=== PATIENT | female | born 1960 | race Caucasian/White ===

== ENCOUNTER 2020-03-05 13:21 | Outpatient (CLI) | payer OTHER, SELFPAY ==
--- NOTE | 2020-03-05 | ECHO_ITS ---
Patient Info Name: Argelia Roman Age: 59 years : 1960 Gender: Female Ht: 64 in Wt: 145 lbs BSA: 1.73 m2 HR: 68 bpm BP: 136 / 93 mmHg Heart Rhythm: Sinus Rhythm Technical Quality: Good Exam Date: 03/05/2020 2:07 PM Exam Location: [facility] Pulmonary Patient Status: Outpatient Admit Date: 03/05/2020 Staff Ordering Physician: Eugenio Graham MD Returner: Thom Genao, BONITA, RT Attending Provider: Eugeino Graham MD Referring Physician: Santos BRASHER; Exam Type: CA echo doppler color flow Study Info Indications Z85.3 - Personal history of malignant neoplasm of breast Complete two-dimensional, color flow and Doppler transthoracic echocardiogram is performed. Strain analysis performed. Summary 1. Complete two-dimensional, color flow and Doppler transthoracic echocardiogram is performed. 2. Strain analysis performed. 3. Left ventricular chamber dimension is normal. 4. Left ventricular systolic function is normal, estimated at 65-70%. 5. There is no increased left ventricular wall thickness. 6. Left ventricular septal wall motion is normal. 7. The left ventricular diastolic function is normal. 8. Global longitudinal strain is borderline at -17 %. 9. Left atrial chamber dimension is mildly enlarged. 10. There is mild to moderate mitral valve regurgitation. 11. There is mild tricuspid valve regurgitation. Left Ventricle Left ventricular chamber dimension is normal. Left ventricular systolic function is normal, estimated at 65-70%. There is no increased left ventricular wall thickness. Left ventricular septal wall motion is normal. The left ventricular diastolic function is normal. Global longitudinal strain is borderline at -17 %. Right Ventricle Right ventricular chamber dimension is normal. Right ventricular systolic function is normal. Left Atria Left atrial chamber dimension is mildly enlarged. Right Atria Right atrial chamber dimension is normal. Atrial Septum Intact interatrial septum visualized by color flow imaging. Aortic Valve The aortic valve is trileaflet. There is mild aortic valve sclerosis. There is no aortic valve stenosis. There is trace aortic valve regurgitation. Pulmonic Valve The pulmonic valve is normal. There is no pulmonic valve stenosis. There is trace pulmonic regurgitation. Mitral Valve The mitral valve has normal leaflets. There is no mitral valve stenosis. There is mild to moderate mitral valve regurgitation. Tricuspid Valve The tricuspid valve leaflets are normal. There is no significant tricuspid valve stenosis. There is mild tricuspid valve regurgitation. No pulmonary hypertension, estimated pulmonary arterial systolic pressure is 26 mmHg. Pericardium/Pleural The pericardium appears normal. There is no pericardial effusion. Inferior Vena Cava Normal inferior vena cava with >50% collapse upon inspiration consistent with normal right atrial pressure, 5 mmHg. Aorta The aortic root size at the sinus of Valsalva is normal. The prox ascending aorta size is normal. Left Ventricular Outflow Tract Name Value Normal LVOT 2D LVOT Diameter 1.9 cm LVOT Doppler
== END 2020-03-05 13:22 | disposition home or self-care (01) ==
PROVIDERS: PCP Family Medicine Sports Medicine; Visit Provider Internal Medicine Hematology & Oncology
DX: C50.911 Malignant neoplasm of unspecified site of right female breast (principal)
CPT/HCPCS: 93306

== ENCOUNTER 2023-10-22 15:03 | Outpatient (CLI) | payer OTHER, SELFPAY ==
[2023-10-22 15:27] LABS: Basophils Percent Auto 0.7 % (0.2-1.2); Eosinophils Absolute Auto 0.1 K/mm3 (0-0.3); Eosinophils Percent Auto 2.2 % (0-4.4); Hemoglobin 14.6 g/dL (12.0-15.0); Immature Granulocyte Absolute 0.02 K/mm3 (0.00-0.031); Immature Granulocyte Percent A 0.3 % (0-0.5); Lymphocytes Absolute Auto 1.77 K/mm3 (0.9-3.2); Lymphocytes Percent Auto 30.3 % (18.3-44.2); Mean Corpuscular HGB Conc 33.2 g/dl (32-36); Mean Corpuscular Hemoglobin 29.9 pg (26-34); Mean Platelet Volume 9.3 fl (7.4-10.4); Monocytes Absolute Auto 0.4 K/mm3 (0.1-0.6); Monocytes Percent Auto 7.5 % (2.6-8.5); Neutrophils Absolute Auto 3.4 K/mm3 (1.3-6.7); Platelet Count Result 298 k/mm3 (150-375); Red Blood Count 4.89 M/mm3 (4.2-5.4); White Blood Count 5.8 K/mm3 (4.5-10.0)
[2023-10-22 15:39] LABS: Alanine Aminotransferase 27 U/L (6-35); Albumin Level 4.2 g/dL (3.5-5.1); Alkaline Phosphatase 83 U/L (38-126); Anion Gap 7 mmol/L (4-12); Aspartate Amino Transferase 31 U/L (14-36); Bilirubin,Total 0.4 mg/dL (0.2-1.3); Blood Urea Nitrogen 10 mg/dL (7-17); CRP < 0.5 mg/dL (<1.0); Calcium 9.3 mg/dL (8.4-10.2); Carbon Dioxide 32 mmol/L (22-30); Chloride 102 mmol/L (98-107); Estimated Glomerular Filt Rate 56; Glucose 83 mg/dL (65-110); Potassium 4.4 mmol/L (3.4-5.0); Sodium 141 mmol/L (137-145)
[2023-10-25 14:15] LABS: Immunoglobulin A 237 mg/dL (70-320); TTG IGA AB <1.0 U/mL
== END 2023-10-22 15:04 | disposition home or self-care (01) ==
LOC: ANHLAB 15:04
PROVIDERS: PCP Family Medicine; Visit Provider Nurse Practitioner Family
DX: R10.13 Epigastric pain (principal); R19.7 Diarrhea, unspecified; R15.2 Fecal urgency; R10.9 Unspecified abdominal pain
CPT/HCPCS: 36415; 80048; 80076; 82784; 85025; 86140; 86364

== ENCOUNTER 2023-10-23 10:17 | Outpatient (CLI) | payer OTHER, SELFPAY ==
[2023-10-30 00:44] LABS: Calprotectin, Stool 11 mcg/g
[2023-11-02 00:39] LABS: Pancreatic Elastase, Stool 50 mcg/g
== END 2023-10-23 10:18 | disposition home or self-care (01) ==
PROVIDERS: PCP Family Medicine; Visit Provider Nurse Practitioner Family
DX: R19.7 Diarrhea, unspecified (principal); R15.2 Fecal urgency; R10.13 Epigastric pain; R10.9 Unspecified abdominal pain
CPT/HCPCS: 82653; 83993

== ENCOUNTER 2023-12-27 00:32 | Day surgery (SDC) | payer MEDICARE, SELFPAY ==
[2023-12-21 15:26] VITALS: BMI 28.5
[2023-12-27 10:06] VITALS: BP 122/81; PULSE 85; RESP 18; TEMP 36.3; O2SAT 99
[2023-12-27 10:14] VITALS: BMI 28.1
[2023-12-27] MEDS: LACTATED RINGERS 1,000 ML 150 ML IV CONT (10:22)
--- NOTE | 2023-12-27 10:32 | WPDANESEPPF ---
Anes - Initial Pre Proc Eval Procedure: Operation Date: 12/27/23 11:00 Proposed Procedures p Esophagogastroduodenoscopy & Colonoscopy - Spencer Hernandez MD Date/Time: 12/27/23 10:32 Surgeon: Spencer Hernandez MD Pre Op Diagnosis: fecal urgency, epigastric pain, nausea, diarrhea Patient Data Age: 63 Gender: F Height: 1.6 m Weight: 72.1 kg Last Vital Signs Temp 36.3 C L 12/27/23 10:06 Pulse 85 12/27/23 10:06 Resp 18 12/27/23 10:06 BP 122/81 12/27/23 10:06 Pulse Ox 99 12/27/23 10:06 O2 Del Method Room Air 12/27/23 10:06 Allergies Allergy/AdvReac Type Severity Reaction Status Date / Time No Known Allergies Allergy Unknown Verified 12/21/23 15:07 Home Medications Medication Instructions Recorded Confirmed Type cholecalciferol (vitamin D3) 25 25 mcg PO DAILY 07/01/20 12/21/23 History mcg (1,000 unit) tablet (Vitamin D3) levothyroxine 100 mcg tablet 100 mcg PO DAILY 07/01/20 12/21/23 History paroxetine HCl 20 mg tablet 20 mg PO QAM 07/01/20 12/21/23 History atorvastatin 10 mg tablet 10 mg PO DAILY 07/08/20 12/21/23 History dicyclomine 10 mg capsule 10 mg PO TID #90 caps 10/22/23 12/21/23 Rx omeprazole 40 mg capsule,delayed 40 mg PO DAILY #30 caps 10/22/23 12/27/23 Rx release lipase 60,000-protease 1 cap PO .ac #300 caps 11/02/23 12/21/23 Rx 189,600-amylase 252,600 unit capsule, delay rel (Zenpep) Patient hx anesthesia problems: none Family hx anesthesia problems: none Results Review: All pre-operative results and documents have been reviewed as part of the pre-operative evaluation. [facility] Past Medical History Medical History (Updated 12/27/23 @ 10:34 by Alvaro Hoffman MD) Breast CA Depression Hyperlipidemia Surgical History Surgical History (Updated 10/22/23 @ 14:26 by Comfort Sanchez MA) H/O lumpectomy H/O: hysterectomy Family History Family History Mother Breast cancer, Onset Age: 79 Social History Social History Smoking status: Never smoker Alcohol intake: never Substance use: current Substance use type: does not use Living arrangements: with family Spiritual care concerns: No Anes - Eval Final PreProcedure Day of Procedure 12/27/23 10:32 Patient weight: overweight Heart: regular rate and rhythm Lungs: clear to auscultation Airway: Mallampati scale class II Neurological: alert and oriented Last oral intake: >/= 8 hours ASA classification: II Emergent: no Anesthetic plan: proceed Anesthesia type and monitoring: general GIVS and standard monitoring Results Review: All pre-operative results and documents have been reviewed as part of the pre-operative evaluation. Informed Consent: The patient's anesthetic plan and its attendant risks and benefits were discussed with the patient/family/POA. Questions were solicited and answers provided to the satisfaction of the patient/family/POA.
--- NOTE | 2023-12-27 10:48 | PM.IMHP ---
H&P: HPI History of Present Illness Date/Time: 12/27/23 10:48 Chief Complaint: epigastric pain - colonoscopy screening Narrative: Over the past 2-3 weeks she has been having epigastric pain that she states is sharp in nature and sometimes feels like it takes her breath away . She has taken OTC Tums before and states that it did help with the epigastric pain. She complains of daily episodes of nausea without vomiting. In addition, she has never had a colonoscopy and is here for her 1st screening colonoscopy. Review of Systems Review of Systems: All systems reviewed & are unremarkable except as noted in HPI and below PMFSH Past Medical History Medical History Breast CA Depression Hyperlipidemia Surgical History Surgical History (Updated 10/22/23 @ 14:26 by Comfort Sanchez MA) H/O lumpectomy H/O: hysterectomy Family History Family History Mother Breast cancer, Onset Age: 79 Social History Social History Smoking status: Never smoker Alcohol intake: never Substance use: current Substance use type: does not use Living arrangements: with family Spiritual care concerns: No Meds Home Medications and Allergies Home Medications Medication Instructions Recorded Confirmed Type cholecalciferol (vitamin D3) 25 25 mcg PO DAILY 07/01/20 12/21/23 History mcg (1,000 unit) tablet (Vitamin D3) levothyroxine 100 mcg tablet 100 mcg PO DAILY 07/01/20 12/21/23 History paroxetine HCl 20 mg tablet 20 mg PO QAM 07/01/20 12/21/23 History atorvastatin 10 mg tablet 10 mg PO DAILY 07/08/20 12/21/23 History dicyclomine 10 mg capsule 10 mg PO TID #90 caps 10/22/23 12/21/23 Rx omeprazole 40 mg capsule,delayed 40 mg PO DAILY #30 caps 10/22/23 12/27/23 Rx release lipase 60,000-protease 1 cap PO .ac #300 caps 11/02/23 12/21/23 Rx 189,600-amylase 252,600 unit capsule, delay rel (Zenpep) Allergies Allergy/AdvReac Type Severity Reaction Status Date / Time No Known Allergies Allergy Unknown Verified 12/21/23 15:07 Vital Signs Vital Signs - 24 hr 12/27/23 10:06 Temperature 97.4 F L Pulse Rate 85 Respiratory Rate 18 Blood Pressure 122/81 Pulse Oximetry 99 Oxygen Delivery Room Air Assessment and Plan Assessment and plan (1) Epigastric pain: Code(s): R10.13 - Epigastric pain Status: Acute Assessment and Plan: The patient is deemed a good candidate for both procedures. Consent signed. Will proceed. (2) Screening for malignant neoplasm of colon: Code(s): Z12.11 - Encounter for screening for malignant neoplasm of colon Status: Acute
--- NOTE | 2023-12-27 11:10 | SUR.OPER ---
EGD [id number]. Colonoscopy start time 1114.
[2023-12-27 11:36] VITALS: BP 136/81; PULSE 77; RESP 21; O2SAT 100
[2023-12-27 11:46] VITALS: BP 136/63; PULSE 84; RESP 25; O2SAT 100
[2023-12-27 11:56] VITALS: BP 159/96; PULSE 70; RESP 20; O2SAT 100
== END 2023-12-27 12:08 | disposition home or self-care (01) ==
PROVIDERS: PCP Family Medicine; Referring Provider Nurse Practitioner Family; Visit Provider Internal Medicine Gastroenterology
PROC: 0DJ08ZZ Inspection of Upper Intestinal Tract, Via Natural or Artificial Opening Endoscopic (ICD-10-PCS; CPT 43235; principal; 2023-12-27 11:00)
DX: Z12.11 Encounter for screening for malignant neoplasm of colon (principal); D12.3 Benign neoplasm of transverse colon; D12.8 Benign neoplasm of rectum; K21.00 Gastro-esophageal reflux disease with esophagitis, without bleeding; K29.50 Unspecified chronic gastritis without bleeding; K29.80 Duodenitis without bleeding; E78.5 Hyperlipidemia, unspecified; F32.A Depression, unspecified; Z98.890 Other specified postprocedural states; Z85.3 Personal history of malignant neoplasm of breast
CPT/HCPCS: 43239; 45385; 88305; J2003; J2704; J7120

== ENCOUNTER 2024-07-26 09:23 | Outpatient (CLI) | payer MEDICARE, SELFPAY ==
--- NOTE | ~2024-07-26 | DEXA_ITS ---
Bone Density Report Name: LUCIA MYLES Age: 63 Sex: Female Ethnicity: White Date of : 1960 Indication: postmenopausal; screening for osteoporosis; cancer; hysterectomy; Referring Provider: SHERYL, LORA Duncan Study: Bone densitometry was performed. Exam Date: July 26, 2024 Accession number: [id number] Bone Density: Region BMD T-score Z-score Classification AP Spine(L1, L2, L3) 0.955 -0.6 1.2 Normal Femoral Neck (Left) 0.619 -2.1 -0.5 Osteopenia Total Hip (Left) 0.806 -1.1 0.1 Osteopenia Femoral Neck (Right) 0.609 -2.2 -0.6 Osteopenia Total Hip (Right) 0.792 -1.2 0.0 Osteopenia Total Hip Mean 0.799 -1.2 0.1 Osteopenia World Health Organization criteria for BMD impression classify patients as: Normal (T-score at or above -1.0), Osteopenia (T-score between -1.0 and -2.5), or Osteoporosis (T-score at or below -2.5). 10-year Fracture Risk(1): Major Osteoporotic Fracture 11% Hip Fracture 1.9% Reported Risk Factors: [place] (), Neck BMD=0.609, BMI=27.5 (1) FRAX(R) Version 3.08. Fracture probability calculated for an untreated patient. Fracture probability may be lower if the patient has received treatment. Previous Exams: Region Exam Age BMD T-score BMD Change BMD Change Date g/cm2 vs Baseline vs Previous AP Spine (L1-L3) 07/26/2024 63 0.955 -0.6 -0.081 (-7.8%) -0.081 (-7.8%) 08/11/2018 57 1.036 0.2 Total Hip(Left) 07/26/2024 63 0.806 -1.1 -0.099 (-10.9% -0.099 (-10.9% 08/11/2018 57 0.905 -0.3 *Denotes significance at 95% confidence level, LSC for AP Spine = 0.022 g/cm2, LSC for Total Hip = 0.027 g/cm2 # Denotes dissimilar scan types or analysis methods Clinical Information Provided by Patient: Has used the following medications: Vitamin D, Calcium Has the following medical conditions: Cancer, Hysterectomy Patient maximum height was 64 Menopause Age: 33 Drinks caffeinated beverages Onset of menses at age 13 Number of children 1 Impression: The patient has low bone mass, based on the Right Femoral Neck T-score. The patient has an estimated ten-year risk of hip fracture of 1.9% and an estimated ten-year risk of major fracture of 11%, based on the WHO FRAX algorithm. No significant bone loss was observed. Discussion: BONE DENSITY IS LOW AT ONE OR MORE SKELETAL SITES. This patient's lowest T-score is low at one or more skeletal sites. It meets the World Health Organization's (WHO) criteria for ?low bone mass? (T-score between -1.0 and -2.5). The patient's 10-year risk of fracture as calculated by FRAX is less than the threshold where pharmacological therapy is recommended by the National Osteoporosis Foundation (NOF). However, all treatment decisions require clinical judgment and consideration of individual patient factors, including patient preferences, comorbidities, previous drug use, risk factors not captured in the FRAX model (e.g., frailty, falls, vitamin D deficiency, increased bone turnover, interval significant decline in bone density) and possible under or overestimation of fracture risk by FRAX. The patient should follow a healthful lifestyle (good nutrition with adequate calcium and vitamin D, and appropriate weight-bearing exercise). Follow-Up: Consider repeating this study in 2 to 3 years to reassess this patient's status, or sooner if there is some new clinical indication. Reported by: ROSE MARY on 07/26/2024 10:01:00 AM. Reviewed, dictated and finalized at location [facility]
--- OUTSIDE RECORDS SUMMARY | 2024-07-26 10:03 | XMS_ITS | Clinical Summary ---
Author Organization [facility] Address [address] [place] [address] Care Team Providers Care Community Services Manager Name Role Phone Unavailable Primary Care Provider Unavailabl e Source Comments [facility],non-owned Affiliates and Associated Physician Practices is amultiple site organization consisting of ambulatory clinics and hospital sitesin [place], [place], [place] and [place]. This disclosure is being madepursuant to the Care Everywhere program and may not contain all information available regarding this patient. Last updated 17.[facility] Social History Tobacco Use Types Packs/Day Years Used Date Smoking Tobacco: Never Assessed Comments Unknown Sex and Gender Information Value Date Recorded Sex Assigned at Not on file Legal Sex Female 11:05 AM CDT Gender Identity Not on file Sexual Orientation Not on file Plan of Treatment Health Maintenance Due Date Last Done Comments BONE DENSITY TESTING 1960 COLOGUARD (AGES 45-75) - COL ON CA SCREENING 1960 COLON MONITORING 1960 COLONOSCOPY - COLON CA SCREENING 1960 CT COLONOGRAPHY - COLON CA SCREENING 1960 Colorectal Cancer Screening 1960 FIT - COLON CA SCREENING 1960 FLEX SIG - COLON CA SCREENING 1960 LIPID TESTING 1960 MAMMOGRAM 1960 PAP SMEAR 1960 HIV SCREENING 1973 HEPATITIS C SCREENING 11/14/1976 DTAP/TDAP/TD VACCINES (1 - Tdap) 1977 PNEUMOCOCCAL VACCINE 50+ (1 of 1 - PCV) 2008 ZOSTER VACCINE (1 of 2) 2008 COVID-19 VACCINE (1 - 2023-2 5 season) 2023 DEPRESSION SCREENING 03/08/2024 MEDICARE AWV CALENDAR YEAR 2024 INFLUENZA VACCINE (Season Ended) 2024 Respiratory Syncytial Virus (RSV) Vaccine Pt: or over 60 yrs (1 - 1-dose 75+ series) 2033 HEPATITIS B VACCINE Aged Out No longe r eligible based on patient's age to complete this topic HIB VACCINE Aged Out No longer eligi ble based on patient's age to complete this topic HPV VACCINE Aged Out No longer eligi ble based on patient's age to complete this topic MENINGOCOCCAL (Group B) VACC INE SHARED DECISION-MAKING Aged Out No longer eligibl e based on patient's age to complete this topic MENINGOCOCCAL GROUPS A/C/Y/W VACCINE Aged Out No longer eligible b ased on patient's age to complete this topic [address] [place] [id number] [email or web address] MEDICARE ADV SELF PAY NO INSURANCE Member Subscriber Plan / Payer (Ef fective for All Dates) Name:Lucia Myles Member ID:Not on file Relation to Subscriber:Not on file Name:LUCIA MYLES Subscriber ID:Not on file (Home) Address: [address] [place] [address] [address] [phone] Payer ID:Not on file Group ID:Not on file Type:Self Pay Address: [place], [place]
--- OUTSIDE RECORDS SUMMARY | 2024-07-26 10:03 | XMS_ITS | Encounter Summary ---
Author Organization [facility] Address [address] [place] [address] Care Team Providers Care Food And Beverage Attendant Name Role Phone Unavailable Primary Care Provider Unavailabl e Encounter Details Date Type Department Care Team (Late st Contact Info) Description 07/21/2022 Lab Requisition [facility] - DermPath Lab [address] [place] [address] Nikky Malone DO [address] [facility] [facility] [address] [place] [address] Social History Tobacco Use Types Packs/Day Years Used Date Smoking Tobacco: Never Assessed Comments Unknown Sex and Gender Information Value Date Recorded Sex Assigned at Not on file Legal Sex Female 11:05 AM CDT Gender Identity Not on file Sexual Orientation Not on file documented as of this encounter Plan of Treatment Not on file documented as of this encounter Procedures Procedure Name Priority Date/Time Associated Diagnosis Comments DERMATOPATHOLOGY Routine 07/21/2022 10:5 2 AM CDT documented in this encounter Results * DERMATOPATHOLOGY (07/21/2022 10:52 AM CDT) Case Report Dermatopathology Report Case: [id number] Authorizing Provider: Nikky Malone DO Collected: 07/21/2022 10:52 AM Ordering Location: [facility] DermPath Lab Received: 07/21/2022 04:45 PM Pathologist: Neela Vieyra MD Specimen: Skin, right mid back 12:55 PM CDT DERMATOPATHOLOGY LABORATORY Final Diagnosis Specimen A. SKIN, right mid back: LICHEN PLANUS-LIKE KERATOSIS (BENIGN LICHENOID KERATOSIS) (L82.1) 12:55 PM CDT DERMATOPATHOLOGY LABORATORY at 1255 CDT Clinical History R/O BCC 3 12:55 PM CDT DERMATOPATHOLOGY LABORATORY Gross Description Specimen A: Received is one formalin filled container labeled with the patient's name and designated right mid back. The specimen consists of a shave biopsy measuring 5x3x1 mm. Jar 0. 3 12:55 PM CDT DERMATOPATHOLOGY LABORATORY Microscopic Description Specimen A. SKIN, right mid back: The epidermis is mildly acanthotic. There is a lichenoid infiltrate with vacuolar changes of basilar keratinocytes and scattered necrotic keratinocytes. 3 12:55 PM CDT DERMATOPATHOLOGY LABORATORY Disclaimer An external and internal positive and negative controls are appropriate for the histochemical, immunohistochemical and immunofluorescence stain(s) in this case (if any), except where stated explicitly. The performance characteristics of the stain(s) cited in this report were developed and its performance characteristic determined by the Dermatopathology Laboratory at [facility], directed by Dr. Karen Huang. These tests need not be, and therefore are not, approved by the [place] Food and Drug Administration. The tests are used for clinical purposes. Billing Codes Specimen Charges Stain Charges 33215 1 3 12:55 PM CDT DERMATOPATHOLOGY LABORATORY Embedded Images 3 12:55 PM CDT DERMATOPATHOLOGY LABORATORY Pathology/Cytolo gy TISSUE SPECIMEN FROM SKIN / Unknown 07/21/2022 10:52 AM CDT 07/21/2022 4:45 PM CDT us Nikky Malone DO LAB - PATHOLOGY/CYTOLOGY ORDERABLES Final Result DERMATOPATHOLOGY LABORATORY [facility] - Department of Dermatology [address], [address] [phone] documented in this encounter Visit Diagnoses Not on filedocumented in this encounter
--- OUTSIDE RECORDS SUMMARY | 2024-07-26 10:03 | XMS_ITS | Encounter Summary ---
Author Organization [facility] Address [address] [place] [address] Care Team Providers Care Ethics Manager Name Role Phone Amanuel Coughlin MD Primary Care Provider [phone] Encounter Details Date Type Department Care Team (Late st Contact Info) Description 04/03/2020 Chart Note [facility] Rad[facility] Therapy [address] [place] [address] [place] [address] [place] [address] Social History Tobacco Use Types Packs/Day Years Used Date Smoking Tobacco: Never Smokeless Tobacco: Never Alcohol Use Standard Drinks/Week Comments Yes 0 (1 standard drink = 0.6 oz pur e alcohol) rare Comments No Sex and Gender Information Value Date Recorded Sex Assigned at Not on file Legal Sex Female 4:48 AM UNIFORM ROOM ATTENDANT Gender Identity Not on file Sexual Orientation Not on file Occupation Industry Job Start Date Job End Date Not on file Not on file Not on file Not on file COVID-19 Exposure Response Date Recorded In the last month, have you been in contact with someone who was confirmed or suspected to have Coronavirus / COVID-19? No / Unsure 03/06/2020 9:42 AM UNIFORM ROOM ATTENDANT documented as of this encounter Plan of Treatment Upcoming Encounters Date Type Department Care Team (Late st Contact Info) Description 12/19/2024 12:00 PM CDT Appointment [facility] Jeff Nolan [address] [place] [address] [place] [address] [address] [place] [phone] 12/19/2024 1:05 PM CDT Office Visit [facility] Breast Surgery Jeff Nolan [address] [facility] [address] [place] [address] [place] [address] [address] [facility] [address] [place] [address] documented as of this encounter Visit Diagnoses Not on filedocumented in this encounter Care Teams Ethics Manager Relationship Specialty Start Date End Date Amanuel Coughlin MD [address] [place] [address] PCP - General Family Practice 02/08/20 documented as of this encounter
--- OUTSIDE RECORDS SUMMARY | 2024-07-26 10:03 | XMS_ITS | CONTINUITY OF CARE DOCUMENT ---
Author Name carlos gonzalez Address Unknown Organization [facility] Address [address] [place] [address] [address] [place] [address] Phone [phone] Care Team Providers Care Peanut Vendor Name Role Phone Hola Morin MD Unavailable INSURANCE PROVIDERS Payer name Policy type / Coverage type Ning red libertarian ID [employer] OPEN ACCESS Other [id number]
--- OUTSIDE RECORDS SUMMARY | 2024-07-26 10:03 | XMS_ITS | Encounter Summary ---
Author Organization [facility] Address [address] [place] [address] Phone Care Team Providers Care Audio Visual Technician Name Role Phone Amanuel Coughlin MD Primary Care Provider [phone] Jorge Landon MD PhD Unavailable Vikki Huffman FLAT GRINDER OPERATOR Unavailable Mannie Roldan MD, Emory Unavailable [phone] Dorothy Bran FLAT GRINDER OPERATOR Unavailable [phone] Prateek Mancini MD Primary Care Provider [phone] Encounter Details Date Type Department Care Team (Late st Contact Info) Description 01/27/2021 Orders Only [facility] [address] [address] [place] [address] Jorge Landon MD PhD [address] [place], [place] [id number] Social History Tobacco Use Types Packs/Day Years Used Date Smoking Tobacco: Never Smokeless Tobacco: Never Alcohol Use Standard Drinks/Week Comments Yes 0 (1 standard drink = 0.6 oz pur e alcohol) Comments Unknown Sex and Gender Information Value Date Recorded Sex Assigned at Not on file Legal Sex Female 1:38 AM INFECTION PREVENTIONIST Gender Identity Female 02/28/2020 10:06 AM INFECTION PREVENTIONIST Sexual Orientation Straight 02/28/2020 10 :06 AM INFECTION PREVENTIONIST documented as of this encounter Plan of Treatment Not on file documented as of this encounter Visit Diagnoses Not on filedocumented in this encounter Additional Health Concerns Infection Onset Date Last Indicated Resolved Time COVID: Suspected 07/21/2024 07/21/2024 07/21/2024 9:33 AM CDT COVID19 07/21/2024 07/21/2024 documented as of this encounter Care Teams Audio Visual Technician Relationship Specialty Start Date End Date Amanuel Coughlin MD [address] [place] [address] PCP - General Family Medicine 02/14/20 02/17/23 Prateek Mancini MD [address] [place] [address] PCP - General Family Medicine 02/18/23 Jorge Landon MD PhD [address] [place], [place] [phone] Consulting Physician Medical Oncology 04/10/20 05/12/21 Vikki Huffman NP [address] [place] [address] Nurse Practitioner Medical Oncology 04/10/20 10/13/21 Emory Chand Jr., MD [address] [place] [address] Medical Oncologist/Manager Intern Medical Oncology 05/13/21 08/13/22 Dorothy Brna NP [address] [place] [address] Nurse Practitioner Medical Oncology 08/15/22 documented as of this encounter
--- OUTSIDE RECORDS SUMMARY | 2024-07-26 10:03 | XMS_ITS | Encounter Summary ---
Author Organization [facility] Address [address] [place] [address] Care Team Providers Care Computer Mechanic Name Role Phone Amanuel Coughlin MD Primary Care Provider [phone] Encounter Details Date Type Department Care Team (Late Contact Info) Description 07/26/2024 External Device Data [facility] ABSTRACTION Provider, Abstract NO ADDRESS ON FILE Social History Tobacco Use Types Packs/Day Years Used Date Smoking Tobacco: Never Smokeless Tobacco: Never Alcohol Use Standard Drinks/Week Comments Yes 0 (1 standard drink = 0.6 oz pur e alcohol) rare Feeling Safe Answer Date Recorded Within the last year, have y ou been afraid of your partner or ex-partner? No 12/14/2023 Emotionally Abused Not on file 12/14/2023 Within the last year, have y ou been kicked, hit, slapped, or otherwise physically hurt by your partner or ex-partner? No 12/14/2023 Sexually Abused Not on file 12/14/2023 Comments No Sex and Gender Information Value Date Recorded Sex Assigned at Not on file Legal Sex Female 4:48 AM COMPUTER SYSTEMS ENGINEER Gender Identity Not on file Sexual Orientation Not on file Occupation Industry Job Start Date Job End Date Not on file Not on file Not on file Not on file documented as of this encounter Plan of Treatment Upcoming Encounters Date Type Department Care Team (Late st Contact Info) Description 12/19/2024 12:00 PM CDT Appointment [facility] Jeff Nolan [address] [place] [address] [place] [address] [place] [phone] 12/19/2024 1:05 PM CDT Office Visit [facility] Breast Surgery Jeff Nolan [address] [facility] [address] [place] [address] [place] [address] [facility] [address] [place] [address] documented as of this encounter Visit Diagnoses Not on filedocumented in this encounter Care Teams Computer Mechanic Relationship Specialty Start Date End Date Amanuel Coughlin MD [address] [place] [address] PCP - General Family Practice 02/08/20 documented as of this encounter
--- OUTSIDE RECORDS SUMMARY | 2024-07-26 10:03 | XMS_ITS ---
Author Organization [facility] [address] [facility] Address [address] [place] [address] Care Team Providers Care Cracking Machine Operator Name Role Phone Dorothy Bran DIRECTOR OF SECURITY Unavailable [phone] Prateek Mancini MD Primary Care Provider [phone] Active Problems Problem Noted Date Diagnosed Date Depression 04/20/2023 Thyroid disease 04/20/2023 Persons encountering health services in other specified circumstances 03/13/2020 Malignant neoplasm of upper- inner quadrant of right breast in female, estrogen receptor negative 02/27/2020 Family history of breast cancer 11/16/2012 Abnormal mammogram of left breast 11/11/2012 Current Treatment and Therapy Plans No current plan information found. Past Treatment and Therapy Plans Oncology Chemotherapy Treatment Plan Name Start Date Discontinue Date Treatment Medications Discontinue Reason Plan Provider Cycles TC: (DOCEtaxe l / Cyclophos phamide) 21 Day Cycles - Breast 1 08/06/2020 cycloPHOSphamide IVPB in 250 mL (vial 200 mg/mL)([id number])DOCEta xel (TAXOTERE) IVPB in 250 mL (vial 20mg/mL) Therapy Complete Jorge Landon MD PhD 4 of 4 cycles started
--- OUTSIDE RECORDS SUMMARY | 2024-07-26 10:03 | XMS_ITS | Encounter Summary ---
Author Organization [facility] Address [address] [place] [address] Care Team Providers Care Personnel Clerks Supervisor Name Role Phone Amanuel Coughlin MD Primary Care Provider [phone] Encounter Details Date Type Department Care Team (Late Contact Info) Description 07/25/2024 External Device Data [facility] ABSTRACTION Provider, Abstract [...] on file Legal Sex Female 4:48 AM PAINTER APPRENTICE Gender Identity Not on file Sexual Orientation Not on file Occupation Industry Job Start Date Job End Date Not on file Not on file Not on file Not on file documented as of this encounter Plan of Treatment Upcoming Encounters Date Type Department Care Team (Late st Contact Info) Description 12/19/2024 12:00 PM CDT Appointment [facility] [address] [place] [address] [place] [address] [place] [phone] 12/19/2024 1:05 PM CDT Office Visit [facility] [place] [address] [address] [facility] [address] [place] [address] [place] [address] [facility] [address] [place] [address] documented as of this encounter Visit Diagnoses Not on filedocumented in this encounter Care Teams Personnel Clerks Supervisor Relationship Specialty Start Date End Date Amanuel Coughlin MD [address] [place] [address] PCP - General Family Practice 02/08/20 documented as of this encounter
--- OUTSIDE RECORDS SUMMARY | 2024-07-26 10:03 | XMS_ITS | Encounter Summary ---
Author Organization [facility] Address [address] [place] [address] Care Team Providers Care Ordinary Seaman Name Role Phone Amanuel Coughlin MD Primary Care Provider [phone] Encounter Details Date Type Department Care Team (Late st Contact Info) Description 07/07/[address] 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 Gender Identity Not on file Sexual Orientation Not on file documented as of this encounter Plan of Treatment Upcoming Encounters Date Type Department Care Team (Late st Contact Info) Description 12/19/2024 12:00 PM CDT [facility] [address] [place] [phone] [place] [address] [facility] [address] [place] [address] 12/19/2024 1:05 PM CDT Office Visit [facility] [address] [facility] [address] [place] [address] [place] [address] [place] [address] documented as of this encounter Visit Diagnoses Not on filedocumented in this encounter Care Teams Ordinary Seaman Relationship Specialty Start Date End Date Amanuel Coughlin MD [address] [place] [phone] PCP - General Family Practice 02/08/20 documented as of this encounter
--- OUTSIDE RECORDS SUMMARY | 2024-07-26 10:03 | XMS_ITS | Referral Summary ---
Author Organization [address] Address [address] [place] [address] Care Team Providers Care Convention Planner Name Role Phone Dorothy Bran SERVICE UNIT OPERATOR OIL WELL Unavailable [phone] Prateek Mancini MD Primary Care Provider [phone] Encounters Date Type Department Care Team Description 07/21/2024 9:00 AM CDT Office Visit [facility] [place] [address] [place] [place] [address] Veronica White NP COVID-19 (Primary Dx); Nausea and vomiting in adult from Last 3 Months Allergies No known active allergies Medications PARoxetine (PAXIL) 20 mg tablet Take 1 tablet (20 mg total) by mouth daily 02/27/20 20 Active melatonin tablet Take 1 tablet (1 mg total) by mouth nightly as needed Active cholecalciferol (VITAMIN D-3) 1,000 unit capsule Take 1 capsule (1,000 Units total) by mouth daily Active CALCIUM-MAGNESIUM- ZINC ORAL Take by mouth 1,000mg, 400mg,25mg Active atorvastatin (LIPITOR) 10 mg tablet Take 1 tablet (10 mg total) by mouth daily 07/03/19 21 Active loratadine (CLARITIN) 10 mg tablet Take 1 tablet (10 mg total) by mouth daily Active levothyroxine (SYNTHROID) 88 mcg tablet Take 1 tablet (88 mcg total) by mouth daily 06/14/19 23 Active dicyclomine (BENTYL) 10 mg capsule Take 1 capsule (10 mg total) by mouth 3 (three) times a day 04/18/19 25 Active Zenpep 60,000-189,600- 252,600 unit capsule,delayed release(DR/EC) TAKE 1 CAPSULE BY MOUTH WITH MEALS AND/OR SNACKS 06/22/19 25 Active omeprazole (PriLOSEC) 40 mg capsule 07/20/19 25 Active ondansetron ODT (ZOFRAN-ODT) 4 mg disintegrating tabletIndications: Nausea and vomiting in adult Take 1 tablet (4 mg total) by mouth every 8 (eight) hours as needed for nausea or vomiting 12 tablet 07/22/19 25 Active nirmatrelvir 150 mg-ritonavir 100 mg (PAXLOVID 150 mg-100 mg) tablets,dose pack tablets in a dose packIndications:CO VID-19 Take 150 mg nirmatrelvir (1 x 150 mg tablet) with 100 mg ritonavir (1 x 100 mg tablet) with both tablets taken together by mouth twice daily for 5 days. 20 tablet 07/22/19 25 025 Active Active Problems Problem Noted Date Diagnosed Date Depression 04/20/2023 Thyroid disease 04/20/2023 Persons encountering health services in other specified circumstances 03/13/2020 Malignant neoplasm of upper- inner quadrant of right breast in female, estrogen receptor negative 02/27/2020 Family history of breast cancer 11/16/2012 Abnormal mammogram of left breast 11/11/2012 Immunizations Immunization Administration Dates Next Due Influenza, Quadrivalent, Spl it, Intramuscular 12/05/2015 Influenza, Quadrivalent, Spl it, Preservative Free, Intramuscular 2019,01/03/2018,12/10/2016 Influenza, Trivalent, IM (MDV) 12/07/2012 Influenza, Unspecified 12/15/2022 Moderna SARS-CoV-2 Monovalen t Vaccination (12+ YRS) 05/27/2020,04/29/2020 Sars-CoV-2, Unspecified 12/15/2022 ZOSTER Recombinant 12/05/2018,08/15/2018 Social History Tobacco Use Types Packs/Day Years Used Date Smoking Tobacco: Never Smokeless Tobacco: Never Alcohol Use Standard Drinks/Week Comments Yes 0 (1 standard drink = 0.6 oz pur e alcohol) AUDIT-C Answer Date Recorded Frequency of Alcohol Consumption Not on file 02/22/2024 Q2: How many drinks containi ng alcohol do you have on a typical day when you are drinking? 1 or 2 02/22/2024 Q3: How often do you have si x or more drinks on one occasion? 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 Gender Identity Female 02/28/2020 10:06 AM OPTOMETRIST PRESIDENT/PRACTICE OWNER Sexual Orientation Straight 02/28/2020 10 :06 AM OPTOMETRIST PRESIDENT/PRACTICE OWNER Last Filed Vital Signs Vital Sign Reading Time Taken Comments Blood Pressure 134/82 07/21/2024 9:11 AM CDT Pulse 87 07/21/2024 9:11 AM CDT Temperature 37.1 C (98.7 F) 07/21/2024 9:11 AM CDT Respiratory Rate 16 07/21/2024 9:11 AM CDT Oxygen Saturation 98% 07/21/2024 9:11 AM CDT Inhaled Oxygen Concentration - - Weight 74.8 kg (165 lb) 07/21/2024 9:11 AM CDT Height 160 cm (5' 3 ) 07/21/2024 9:11 AM CDT Body Mass Index 29.23 07/21/2024 9:11 AM CDT Plan of Treatment Not on file Procedures Procedure Name Priority Date/Time Associated Diagnosis Comments POCT INFLUENZA A/B Routine 07/21/2024 9: 34 AM CDT COVID-19 COVID-19 POC Routine 07/21/2024 9:33 AM CDT COVID-19 from Last 3 Months Results * POCT influenza A/B (07/21/2024 9:34 AM CDT) Rapid Influenza A Ag Negative Negative, Invalid Rapid Influenza B Ag Negative Negative, Invalid Nasal 07/21/2024 9:34 AM CDT Veronica White NP POINT OF CARE TEST ORDERABLES Fi nal Result * (ABNORMAL) COVID-19 POC (07/21/2024 9:33 AM CDT) COVID-19 Ag POC (BD Veritor) Positive( A) Presumptive Negative, Invalid [facility] Nasal 07/21/2024 9:33 AM CDT us Veronica White SERVICE UNIT OPERATOR OIL WELL POINT OF CARE TEST ORDERABLES Fi nal Result [facility] [address] [place] [address], [facility] from Last 3 Months Additional Health Concerns Infection Onset Date Last Indicated COVID19 07/21/2024 07/21/2024 Insurance [facility] Member Subscriber Plan / Payer (Ef fective 2017-Present) Name:Argelia Roman Member ID:[id number] Relation to Subscriber:Self Name:Argelia Roman Subscriber ID:[id number] Payer ID:[id number] Type:Anhelo HMO/PPO Address: [address] [facility] MEDICARE [facility] MEDIC[facility] Care Teams Convention Planner Relationship Specialty Start Date End Date Prateek Mancini MD [address] [place] [address] PCP - General Family Medicine 02/18/23 Dorothy Bran NP [address] [place] [address] Nurse Practitioner Medical Oncology 08/15/22
--- OUTSIDE RECORDS SUMMARY | 2024-07-26 10:03 | XMS_ITS | Clinical Summary ---
Author Organization [facility] Address [address] [place] [address] Care Team Providers Care Charge Entry Name Role Phone Dorothy Bran PRODUCTION SCHEDULER Unavailable [phone] Prateek Mancini MD Primary Care Provider [phone] Allergies No known active allergies Medications PARoxetine [...] 11/16/2012 Abnormal mammogram of left breast 11/11/2012 Encounters Date Type Department Care Team Description 07/21/2024 9:00 AM CDT Office Visit [facility] [place] [address] [place] [address] Veronica White NP COVID-19 (Primary Dx); Nausea and vomiting in adult from Last 3 Months Immunizations Immunization Administration Dates Next Due Influenza, Quadrivalent, Spl it, Intramuscular 12/05/2015 Influenza, Quadrivalent, Spl it, Preservative Free, Intramuscular 2019,01/03/2018,12/10/2016 Influenza, Trivalent, IM (MDV) 12/07/2012 Influenza, Unspecified 12/15/2022 Moderna SARS-CoV-2 Monovalen t Vaccination (12+ YRS) 05/27/2020,04/29/2020 Sars-CoV-2, Unspecified 12/15/2022 ZOSTER Recombinant 12/05/2018,08/15/2018 Surgical History Surgery Date Site/Laterality Comments HYSTERECTOMY BREAST BIOPSY 06/24/2021 Right BREAST BIOPSY 12/27/2019 Right Medical History Medical History Date Comments Depression Depression Thyroid disease Persons encountering health services in other specified circumstances 03/13/2020 Hypercholesteremia Cancer (HCC) Family History Medical History Relation Name Comments Leukemia Grandchild Breast cancer Mother Breast cancer Niece Cancer Other Family history of Cancer; Gout Other Relation Name Status Comments Brother 1 Alive Brother 2 Alive Father Grandchild Mother Niece Other Sister Alive Social History Tobacco Use Types Packs/Day Years [...] on file Legal Sex Female 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 Gender Identity Female 02/28/2020 10:06 AM TALENT SOURCING SPECIALIST Sexual Orientation Straight 02/28/2020 10 :06 AM TALENT SOURCING SPECIALIST Obstetrics History Last Filed Vital Signs Vital Sign Reading [...] 07/21/2024 9:11 AM CDT Plan of Treatment Health Maintenance Due Date Last Done Comments Colon Cancer Screening-Colonoscopy 1960 Depression Screening 1958 Fall Risk Assessment 1960 Hepatitis C Screening 1960 Osteoporosis Screening-Bone Density Scan 1958 DTaP/Tdap/Td Vaccine (1 - Tdap) 1969 Hepatitis B Screening 1976 Pneumococcal vaccine 65+ (1 of 1 - PCV) 2008 Breast Cancer Screening-Mammogram 12/07/2020 12/08/2019, 10/31/2012, 05/06/2011 Covid-19 Vaccine (2023-2 5 season) 2023 12/15/2022, 05/27/2020, 04/29/2020 Well Visit 65+ 11/20/2023 Influenza Vaccine (Season Ended) 2024 12/15/2022, 2019, 01/03/2018, Additional history exists Zoster Vaccine Completed 12/05/2018, 08/15/2018 Procedures Procedure Name Priority Date/Time Associated Diagnosis [...] (BD Veritor) Positive( A) Presumptive Negative, Invalid [facility] Nasal 07/21/2024 9:33 AM CDT Veronica White NP POINT OF CARE TEST ORDERABLES Fi nal Result [facility] [address] [place] [address], [facility] from Last 3 Months Additional Health Concerns Infection Onset Date Last Indicated COVID19 07/21/2024 07/21/2024 Insurance [facility] [employer]ET[employer] MEDICARE [facility] MEDICARE Care Teams Charge Entry Relationship Specialty Start Date End Date Prateek Mancini MD [address] [place] [address] PCP - General Family Medicine 02/18/23 Dorothy Bran NP [address] [place] [address] Nurse Practitioner Medical Oncology 08/15/22
--- OUTSIDE RECORDS SUMMARY | 2024-07-26 10:03 | XMS_ITS | Clinical Summary ---
Author Organization [facility] Address [address] [place] [address] Phone Care Team Providers Care Urban Planning Professor Name Role Phone Amanuel Coughlin MD Primary Care Provider [phone] Allergies No known active allergies Medications PARoxetine HCl (PAXIL) 20 mg tablet Take 20 mg by mouth daily after lunch. 3 05/30/2018 Active ergocalciferol, vitamin D2, (VITAMIN D ORAL) Take 1 Capsule by mouth daily. Active calcium/mag/vit mays D2/Zn/min (ROSENDA-MAG ZINC II ORAL) Take by mouth. Active levothyroxine 100 mcg tablet TK 1 T PO QD 12/31/2019 A ctive melatonin 1 mg Tablet Take 1 mg by mouth nightly as needed. Active atorvastatin (LIPITOR) 10 mg tablet TAKE 1 TABLET BY MOUTH EVERY DAY 07/02/2020 Active gabapentin (NEURONTIN) 300 mg capsule TAKE 1 CAPSULE BY MOUTH TWICE DAILY NEEDED Active Active Problems Patient Care Coordination No te Formatting of this note migh t be different from the original. Primary Care: Prateek Mancini MD Referring Provider: Pratima Greenwood MD [address] [place] [address] Other: Dr. 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(-) Surgeon: [facility] Surgery: 01/29/2020: right lump/SLN; 02/26/2020 right re-excision and left port Medical Oncologist: Jorge Ramos MD- [facility] in [place], [place] Chemotherapy: TC x 4 Radiation Oncologist: Zehra Radiation: finished July 2020 Hormonal therapy: N/A Genetics: [facility] Breast Cancer panel/CHEK2/SHIRLEY 2019 (-) Family history of breast cancer 11/16/2012 Abnormal mammogram of left breast 11/11/2012 Thyroid disease Depression Encounters Date Type Department Care Team Description 07/26/2024 External Device Data STL ABSTRACTION Provider, Abstract 07/25/2024 External Device Data [facility] ABSTRACTION Provider, Abstract 05/24/2024 External Device Data [facility] ABSTRACTION Provider, Abstract 05/13/2024 External Device Data [facility] ABSTRACTION Provider, Abstract 05/12/2024 External Device Data [facility] ABSTRACTION Provider, Abstract 05/09/2024 External Device Data STL ABSTRACTION Provider, Abstract from Last 3 Months Family History Medical History Relation Name Comments Healthy Brother 1 Healthy Brother 2 Healthy Daughter Healthy Father Breast Cancer Mother Michelle Rosales Breast Cancer Niece Ovarian Cancer Neg Hx Relation Name Status Comments Brother 1 Alive Brother 2 Alive Daughter Alive Father Mother Michelle Rosales Niece Alive Social History Tobacco Use Types Packs/Day [...] on file 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 Gender Identity Not on file Sexual Orientation Not on file Occupation Industry Job Start Date Job End Date Not on file Not on file Not on file Not on file Last Filed Vital Signs Vital Sign Reading Time Taken Comments Blood Pressure 150/85 12/14/2023 11:20 AM CDT Pulse 62 12/14/2023 11:20 AM CDT Temperature 36.3 C (97.3 F) 06/17/2020 8:07 AM CDT Respiratory Rate 16 06/17/2020 8:30 AM CDT Oxygen Saturation 93% 06/17/2020 8:30 AM CDT Inhaled Oxygen Concentration - - Weight 74.5 kg (164 lb 3.2 oz) 12/14/2023 11:20 AM CDT Height 160 cm (5' 3 ) 12/14/2023 11:20 AM CDT Body Mass Index 29.09 12/14/2023 11:20 AM CDT Plan of Treatment Upcoming Encounters Date Type Department Care Team (Late st Contact Info) Description 12/19/2024 12:00 PM CDT Appointment [facility] [address] [place] [address] [place] [address] [place] [phone] 12/19/2024 1:05 PM CDT Office Visit [facility] Breast Surgery [address] [place] [address] [place] [address] [place] [address] Health Maintenance Due Date Last Done Comments Pre-Diabetes and Diabetes Screening 1958 DTAP/TDAP/TD VACCINES (1 - Tdap) 1977 COLORECTAL SCREENING 11/20/2003 Colorectal Cancer Screening 11/20/2003 FIT-DNA Q 3 years 11/20/2003 FIT/FOBT Q 1 year 11/20/2003 Flex Sig/CT Colonography Q 5 years 11/20/2003 PNEUMOCOCCAL VACCINE 50+ YEA RS (1 of 1 - PCV) 2008 INFLUENZA VACCINE (#1) 2023 0, 01/03/2018, 12/10/2016, Additional history exists OSTEOPOROSIS SCREENING 11/20/2023 BREAST CANCER SCREENING 12/13/2024 12/14/19 24, 12/10/2022, 12/09/2021, Additional history exists RSV VACCINE (60+ or ) (1 - 1-dose 75+ series) 2033 ZOSTER VACCINE Completed 12/05/2018, 08/15/2018 Medical Devices Implanted Type Area Upper Leather Cutter Device Identifier Shelf Expiration Date Model / Serial / Lot Paste Worker Clip Surgiclip Ii Wilman 9.75in [id number] - [id number] Implanted:Qty: 1 on 01/29/2020 by Rupinder Aranda MD at [facility] Clip Right: Axilla [employer] - COVIDIEN 11/05/2024 [id number] / / [id number] Explanted Type Area Upper Leather Cutter Device Identifier Shelf Expiration Date Model / Serial / Lot Port Powerport Clearvue 8fr Mri [id number] - [id number] Implanted:Qty: 1 on 02/26/2020 by Rupinder Aranda MD at [facility] Explanted:Qty: 1 on 06/17/2020 by Rupinder Aranda MD at [facility] Port Left: Chest CR BARD- [employer] 05/05/2021 [id number] / / [id number] Procedures Procedure Name Priority Date/Time Associated Diagnosis Comments MAMMO 3D NATACHA DIAGNOSTIC BILAT W OR WO CAD Routine 12/14/2023 11:08 AM CDT Malignant neoplasm of upper-inner quadrant of right breast, TRIPLE NEGATIVE from Last 3 Months or Most Recently Relevant to Health Maintenance Results * MAMMO DIAG BILAT 3D NATACHA W OR WO CAD (12/14/2023 11:08 AM CDT) Anatomical Region Laterality Modality Breast Bilateral Mammography 12/14/2023 11:0 8 AM CDT Impressions 12/14/2023 3:09 PM CDT IMPRESSION: No mammographic evidence of malignancy. OVERALL FINAL ASSESSMENT: BI-RADS Category 2: Benign finding(s). RECOMMENDATION: Normal interval follow-up in one year. Findings discussed with the patient. DICTATION LOCATION: [facility] Narrative 12/14/2023 3:09 PM CDT BILATERAL DIGITAL DIAGNOSTIC MAMMOGRAM WITH TOMOSYNTHESIS AND CAD DATE: 12/14/2023 11:08 AM TECHNIQUE: Images were performed using 2D full field digital mammography with 3D tomosynthesis images. CAD analysis was performed. HISTORY: Right breast cancer status post breast conservation therapy in 2019. History of benign biopsies in both breasts. COMPARISON: Prior mammograms, dating back to 11/26/2020 and most recently 12/10/2022. BREAST COMPOSITION: There are scattered areas of fibroglandular density. FINDINGS: Posttreatment changes are seen in the right breast. Markers from prior benign biopsies are seen in both breasts. There is no suspicious mass, clustered microcalcification, or architectural distortion in either breast on 2D or tomosynthesis images. There has been no change in the mammographic appearance compared with the prior study. Procedure Note Keven West MD - 12/14/2023 BILATERAL DIGITAL DIAGNOSTIC MAMMOGRAM WITH TOMOSYNTHESIS AND CAD DATE: 12/14/2023 11:08 AM TECHNIQUE: Images were performed using 2D full field digital mammography with 3D tomosynthesis images. CAD analysis was performed. HISTORY: Right breast cancer status post breast conservation therapy in 2019. History of benign biopsies in both breasts. COMPARISON: Prior mammograms, dating back to 11/26/2020 and most recently 12/10/2022. BREAST COMPOSITION: There are scattered areas of fibroglandular density. FINDINGS: Posttreatment changes are seen in the right breast. Markers from prior benign biopsies are seen in both breasts. There is no suspicious mass, clustered microcalcification, or architectural distortion in either breast on 2D or tomosynthesis images. There has been no change in the mammographic appearance compared with the prior study. IMPRESSION: No mammographic evidence of malignancy. OVERALL FINAL ASSESSMENT: BI-RADS Category 2: Benign finding(s). RECOMMENDATION: Normal interval follow-up in one year. Findings discussed with the patient. DICTATION LOCATION: [facility] Rupinder Aranda MD MAMMO ORDERABLES Final Result from Last 3 Months or Most Recently Relevant to Health Maintenance Insurance [employer] PPO MCR RX [facility] [employer] Advance Directives For more information, please contact: [phone] Documents on File Type Date Recorded Patient Site Acquisition Manager Expl anation Advance Directive Living Will 02/26/2020 9:06 AM Advance Directive POA 02/26/2020 9:06 AM Advance Directive POA Care Teams Urban Planning Professor Relationship Specialty Start Date End Date Amaneul Coughlin MD [address] [place] [address] PCP - General Family Practice 02/08/20
== END 2024-07-26 09:24 | disposition home or self-care (01) ==
LOC: ANHIMG 09:26
PROVIDERS: PCP Family Medicine; Visit Provider Nurse Practitioner Family
DX: Z78.0 Asymptomatic menopausal state (principal); Z13.820 Encounter for screening for osteoporosis; M85.89 Other specified disorders of bone density and structure, multiple sites; Z91.89 Other specified personal risk factors, not elsewhere classified; Z79.811 Long term (current) use of aromatase inhibitors; C50.412 Malignant neoplasm of upper-outer quadrant of left female breast; Z17.0 Estrogen receptor positive status [ER+]
CPT/HCPCS: 77080